=== PATIENT | male | born 1955 | race Caucasian/White ===

== ENCOUNTER 2020-12-19 16:14 | Emergency (ER) | payer MEDICARE ==
[2020-12-19] MEDS ORDERED: AMOXICILLIN500 MG PO (16:53)
[2020-12-19] MEDS ORDERED: SERTRALINE HCL100 MG PO (16:53)
[2020-12-19 17:56] VITALS: BP 131/87
== END 2020-12-19 17:56 | disposition home or self-care (01) ==
LOC: ED 16:14
PROC: 0HQ0XZZ Repair Scalp Skin, External Approach (ICD-10-PCS; principal; 2020-12-19)
DX: S01.01XA Laceration without foreign body of scalp, initial encounter (principal); W20.8XXA Other cause of strike by thrown, projected or falling object, initial encounter; Y93.H2 Activity, gardening and landscaping; Y92.007 Garden or yard of unspecified non-institutional (private) residence as the place of occurrence of the external cause

== ENCOUNTER 2021-05-13 08:30 | Emergency (ER) | payer MEDICARE ==
[~2021-05-13] VITALS: Ht 185.4 cm; Wt 113.6 kg
[~2021-05-13 08:30] MED LIST: AMOXICILLIN500 MG PO; SERTRALINE HCL100 MG PO
[2021-05-13 10:15] VITALS: BP 133/81
== END 2021-05-13 10:15 | disposition home or self-care (01) ==
LOC: ED 08:30
DX: U07.1 COVID-19 (principal); J12.82 Pneumonia due to coronavirus disease 2019; F32.9 Major depressive disorder, single episode, unspecified